=== PATIENT | female | born 1965 | race Caucasian/White ===

== ENCOUNTER 2024-01-02 19:59 | Emergency (ER) | payer BC, SELFPAY ==
[2024-01-02 20:10] VITALS: BP 87/64
[2024-01-02] MEDS: ZOFRAN 4 MG IV (20:52)
[2024-01-02 20:57] LABS: Hematocrit 39.4 % (37.0-47.0); Hemoglobin 14.4 g/dL (12.0-16.0); Mean Corp Hgb Conc. 36.5 g/dL (33.0-37.0); Mean Corpuscular Hgb 31.2 pg (27.0-31.0); Mean Corpuscular Volume 85.5 fL (81.0-99.0); Mean Platelet Volume 9.6 fL (7.4-10.4); Platelet Count 278 10^3/uL (130-400); Red Blood Cell Count 4.61 10^6/uL (4.20-5.40); Red Cell Dist. Width 13.4 % (11.5-14.5); White Blood Cell Count 14.6 10^3/uL (4.8-10.8)
[2024-01-02] MEDS: NSS 1000 IV (21:00)
[2024-01-02 21:14] LABS: ALT (SGPT) 33 U/L (0-35); AST (SGOT) 32 U/L (14-36); Albumin 4.8 g/dl (3.5-5.0); Alkaline Phosphatase 88 U/L (38-126); Blood Urea Nitrogen 29 mg/dl (7-17); Calcium 9.6 mg/dl (8.4-10.2); Carbon Dioxide 22 mmol/L (22-30); Chloride 105 mmol/L (98-107); Glucose 148 mg/dl (70-99); Lipase 144 U/L (23-300); Potassium 3.8 mmol/L (3.5-5.1); Sodium 137 mmol/L (135-145); Total Bilirubin 1.3 mg/dl (0.2-1.3); Total Protein 8.2 g/dl (6.3-8.2); eGFR > 60.00
[2024-01-02] MEDS: BENADRYL 25 MG IV (21:19)
[2024-01-02] MEDS: COMPAZINE 5 MG IV (21:19)
--- NOTE | 2024-01-02 21:24 | ED.GENMED ---
History of Present Illness
General
Chief Complaint: Abdominal Symptoms
Source: patient
Exam Limitations: none
Time Seen by Provider: 01/02/24 20:54
Travel History
Have you had any contact with someone who has COVID-19?: No
Do you have any symptoms of coronavirus? Fever > 100 degrees, chills, cough, shortness of breath, sore throat, loss of taste or smell, muscle aches, or headache?: No
History of Present Illness
History of Present Illness:
This is a 58 year old female that comes in with c/o vomiting and diarrhea. States that this started at 3pm today and then at 6pm it got worse. States that she feels like she is going to pass out. States that she also has a headache. Denies any
fever, chills, chest pain, SOB, abd pain. dizziness, urinary burning.
Past History
Past History
ED Past Medical History: Hypothyroidism and Other (Brain Tumor with radiation, )
ED Past Surgical History: Orthopedic (Left knee surgery)
Social History
Tobacco: Non-smoker
Alcohol: None
Personal:
Living: with family
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
Review of Systems
Review of Systems
All Other Systems: ROS reviewed and negative except as documented in HPI and ROS
Constitutional: Reports no symptoms; Denies fever or chills
EENT: Reports no symptoms
Respiratory: Reports no symptoms; Denies cough or trouble breathing
Cardiac: Reports no symptoms; Denies chest pain
ABD/GI: Reports nausea, vomiting and diarrhea; Denies abdominal pain
: Reports no symptoms; Denies dysuria, frequency or urgency
Musculoskeletal: Reports no symptoms
Skin: Reports no symptoms
Neurological: Reports headache; Denies dizzy
Psychiatric: Reports no symptoms
Phy Exam
General Physical Exam
General Presentation: mild distress
General age: appears stated age
General Skin: warm and dry
General Habitus: normal
General Mental: alert and anxious
General Hydration: dry mucous membranes
ENT Exam
ENT Exam: TM's normal, pharynx normal and neck supple
Eye Exam
Eye Exam: EOMI
Cardiovascular Exam
Cardiovascular Exam: regular rate/rhythm, no edema, no murmur and normal peripheral pulses
Pulmonary Exam
Pulmonary Exam: lungs clear, no respiratory distress, no rales, chest non tender, no crackles, no rhonchi, no wheezing, no cough and other (Patient is hyperventilating at this time. )
Gastrointestinal Exam
Gastrointestinal Exam: normal bowel sounds, non tender, soft, no organomegaly, no pulsatile mass and non distended
Musculoskeletal Exam
Musculoskeletal Exam: full ROM and no edema
Skin Exam
Skin Exam: normal color, warm/dry, no rash and no petechia
Psychiatric Exam
Psychiatric Exam: normal mood/affect
Course
Orders/Labs/Results
Orders:
Orders
01/02/24 20:45
Complete Blood Count/No Diff Urgent
Comprehensive Metabolic Panel Urgent
Lipase Urgent
01/02/24 20:50
Ondansetron Injectable [Zofran] 4 mg .ROUTE .STK-MED ONE
01/02/24 20:51
Ondansetron Injectable [Zofran] 4 mg IV NOW STA
01/02/24 21:00
0.9% Sodium Chloride 1000 ml [Nss] 1,000 ml IV BOLUS
01/02/24 21:15
Diphenhydramine [Benadryl] 25 mg IV NOW STA
Prochlorperazine [Compazine] 5 mg IV NOW STA
Abnormal Lab Results
01/02/24
20:45
WBC 14.6 H 10^3/uL
(4.8-10.8)
MCH 31.2 H pg
(27.0-31.0)
BUN 29 H mg/dl
(7-17)
Glucose 148 H mg/dl
(70-99)
01/02/24 20:45
01/02/24 20:45
Leukocytosis, Dehydration. Glucose nonfasting. Lipase normal at 144
Vital Signs
Initial and Last Documented VS:
Initial Vital Signs
Temp Pulse Resp BP Pulse Ox
97.0 F 88 22 87/64 100
01/02/24 20:10 01/02/24 20:10 01/02/24 20:10 01/02/24 20:10 01/02/24 20:10
Last Documented Vital Signs
Temp Pulse Resp BP Pulse Ox
98.1 F 96 20 138/70 99
01/02/24 20:43 01/02/24 22:45 01/02/24 22:45 01/02/24 22:00 01/02/24 22:45
MDM/Problems Addressed
Differential Diagnosis Includes:
Viral GI syndrome.
MDM/Problems Addressed:
This is a 58 year old female that comes in with c/o vomiting and diarrhea. Patient is hyperventilating and states that she feels like she is going to pass out.
Will check labs, Give IV fluids and medicate for nausea.
Back into see patient. Patient states that she is feeling better. Explained that this is most likely the GI viral syndrome. Will give patient a prescription for Compazine suppositories for the nausea and vomiting. Patient can also use Imodium for
the diarrhea if needed. Patient to stay on a liquid diet for the next 24 hours. Then increase her diet as tolerated. Follow up with the family doctor. Return with any concerns.
Chronic conditions affecting care:
NA
Acute Exacerbation and/or Progression of Chronic Illness:
NA
*Pulse Oximetry
Patient hypoxic: no
*EKG
Interpreted by ED Provider?: NA
Rate: EKG- N/A
*Statue Maker Interpretation
Rate: normal
Heart Rate: 93
Rhythm: sinus
*Critical Care Note
Total Time (30-74mins, 75-104mins- exclusive of procedures): Not Applicable
ED Attending Note
-
Portions of this chart may have been created with voice recognition software.� Occasional wrong word or��sound alike� substitutions may have occurred due to the inherent limitations of voice recognition software.
Discharge Plan
Departure
Patient Disposition: Home (Routine Discharge)
Date of Disposition: 01/02/24
Time of Disposition: 22:57
Patient with high blood pressure during this ER visit?: No
Condition: Good
Covid-19: Not Applicable
Discharge Problem:
Nausea & vomiting, Diarrhea
Instructions: Diarrhea in adolescents and adults, Nausea and Vomiting, Adult (DC)
Prescriptions:
New
prochlorperazine [Compazine] 25 mg suppository
25 mg ND Q12H PRN (Reason: nausea and vomiting) Qty: 6 0RF
Referrals:
UNKNOWN - PT NOT,INTERVIEWE [Family Provider] -
Activity Restrictions/Additional Instructions:
As discussed, your blood work shows dehydration and your White blood cell count is slightly elevated. This can elevate due to stress. You have been given IV fluids here and a prescription for Compazine suppositories has been sent to your Pharmacy.
Please stay on a liquid diet for the next 24 hours and increase the diet as tolerated. You may use Imodium to help with the diarrhea. Please stay away form milk and milk products until the diarrhea stops. Follow up with the family doctor for
recheck. IF YOU HAVE ANY OTHER CONCERNS PLEASE RETURN TO THE EMERGENCY ROOM
Interventions
Interventions:
*Risk Screen - Suicide Last Done: 01/02/24 20:10
*General Assessment Last Done: 01/02/24 20:10
*Neglect/Abuse Screening Last Done: 01/02/24 20:10
ED- Fall Risk Assessment Last Done: 01/02/24 20:10
YZ-Ctiznq-Nxnjsmnsnt Assessment Last Done: 01/02/24 21:03
[2024-01-02 22:00] VITALS: BP 138/70
[2024-01-02 23:10] VITALS: BP 114/73
[2024-01-02] MEDS: COMPAZINE 25 MG RECTAL (23:16)
== END 2024-01-02 23:19 | disposition home or self-care (01) ==
LOC: EMR 19:59
PROVIDERS: EMERGENCY PHYSICIAN Student in an Organized Health Care Education/Training Program
DX: R11.2 Nausea with vomiting, unspecified (principal); R55 Syncope and collapse; R19.7 Diarrhea, unspecified; R06.4 Hyperventilation; R51.9 Headache, unspecified; E86.0 Dehydration; E03.9 Hypothyroidism, unspecified
CPT/HCPCS: 99284; 96374; 96375 ×2; 96361; 80053; 83690; 85027

== ENCOUNTER 2024-07-23 16:33 | Emergency (ER) | payer BC, SELFPAY ==
[2024-07-23 16:39] VITALS: BP 117/76
--- NOTE | 2024-07-23 17:13 | ED.GENMED ---
History of Present Illness
General
Chief Complaint: Headache
Source: patient
Time Seen by Provider: 07/23/24 17:00
History of Present Illness
History of Present Illness:
58-year-old female presents emergency department with a 10-day history of a headache described as 'pressure more than a headache', started on Wednesday while at work. Is not sudden onset, or maximal in onset. Headache is located in the posterior
occiput and does radiate forward bilaterally to behind her ears. It is not associated with numbness, tingling, focal weakness, clumsiness, imbalance, dizziness, chest pain, dyspnea, photophobia, vomiting, neck pain. It is not positional. She does
note very slight nausea. She thought it might be sinus related and took various [id number] medications without relief. She does notice that if she rests it will improve considerably. She also is complaining of fatigue. Patient denies
fever, chills, cough, sore throat, rhinorrhea, double vision, blurry vision. She does note occasional floaters lasting seconds at a time from the right lateral visual field, not present currently.
Past History
Past History
ED Past Medical History: Hypothyroidism and Other (Brain Tumor with radiation, )
ED Past Surgical History: Orthopedic (Left knee surgery)
Social History
Tobacco: Non-smoker
Alcohol: None
Personal:
Living: with family
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
Phy Exam
Physical Exam
Physical Exam:
GENERAL: Alert , in no apparent distress
EYE: pupils equal and reactive, EOMI, no nystagmus, no photophobia
NECK: Supple, no significant adenopathy.
ENT: o/p clr, mmm, TMs clear bilaterally.
CARDIAC: Regular rate and rhythm .
LUNGS: Clear breath sounds bilaterally, no acute respiratory distress,
ABDOMEN: Soft, without focal tenderness, no r/g, no cvat
NEUROLOGICAL: Alert and oriented, no focal neuro deficits, motor 5/5, sens intact, fundoscopic wnl, visual trotter intact, gait wnl, no meningismus, nods yes and no easily, [id number] normal
SKIN: Warm and dry, skin intact.
MUSCULOSKELETAL: No edema, well perfused.
PSYCH: Normal and appropriate interaction.
Course
Orders/Labs/Results
Orders:
Orders
07/23/24 17:13
CT Head W/o Iv Contrast Urgent
Comment:
Reason For Exam: hx of brain tumor, tx'd with chemo, now post h/a
Vital Signs
Initial and Last Documented VS:
Initial Vital Signs
Temp Pulse Resp BP Pulse Ox
98.3 F 80 16 117/76 98
07/23/24 16:39 07/23/24 16:39 07/23/24 16:39 07/23/24 16:39 07/23/24 16:39
Last Documented Vital Signs
Temp Pulse Resp BP Pulse Ox
98.3 F 67 18 138/78 99
07/23/24 16:39 07/23/24 17:54 07/23/24 17:54 07/23/24 17:54 07/23/24 17:54
*Critical Care Note
Total Time (30-74mins, 75-104mins- exclusive of procedures): Not Applicable
Update Note
Update Note:
Patient presents to the Emergency Department with headache____
Number and Complexity of Problems Addressed at the Encounter
� Chronic conditions affecting care:
� Acute Exacerbation and/or Progression of Chronic Illness:
� Differential Diagnosis includes: But not limited to tumor growth, tumor swelling, new tumor, tension headache, etc. etc.
Amount and/or Complexity of Data to be Reviewed and Analyzed
� I performed an independent evaluation of and my interpretation is:
EKG:
CT: Read by radiology NAD
Xrays:
Laboratory Studies:
Other:
� Review of other/old records reveals:
� Clinical information was obtained by an independent historian:
� Prescriptions/Medications Considered but not given:
� Further testing considered but not performed: Considered labs given patient's history of fatigue however she just had a full panel drawn within the last week all of which were generally unremarkable.
Risk of Complications and/or Morbidity or Mortality of Patient Management
� Social determinants of health affecting care:
� Discussion with other providers (PCP, Hospitalists, Consultants, etc):
� Escalation of care including admission/observation vs risk of discharge considered: 6:20 PM patient is extremely relieved that her head CT is unremarkable and would like to go home she has follow-[facility] already at [facility] on
Wednesday and plans to contact her head inspector and center marker as well as her neurosurgeon in follow-up. Given patient's stability, unremarkable exam, etc. I consider this to be a very reasonable approach. Discussed with her importance of follow-up and
reasons to return to the ER.
ED Attending Note
-
Portions of this chart may have been created with voice recognition software.� Occasional wrong word or��sound alike� substitutions may have occurred due to the inherent limitations of voice recognition software.
Discharge Plan
Departure
Patient Disposition: Home (Routine Discharge)
Date of Disposition: 07/23/24
Time of Disposition: 18:19
Patient with high blood pressure during this ER visit?: Yes
Condition: Good
Discharge Problem:
Headache
Instructions: Headache, Adult (DC), Floaters in the Eye, BLOOD PRESSURE
Prescriptions:
No Action
prochlorperazine [Compazine] 25 mg suppository
25 mg MT Q12H PRN (Reason: nausea and vomiting) Qty: 6 0RF
Referrals:
UNKNOWN - PT DOES,NOT KNOW [Family Provider] -
Activity Restrictions/Additional Instructions:
PLEASE SEE YOUR EYE DOCTOR SCHEDULED THIS WEEK. PLEASE FOLLOW-UP WITH YOUR SHUCKER THIS WEEK. IF YOU DEVELOP WORSENING OR NEW HEADACHE, NEW VISUAL FINDINGS, DOUBLE VISION, FEVER, CHILLS, VOMITING, NUMBNESS, WEAKNESS, IMBALANCE, OR OTHER
WORRISOME SIGNS, PLEASE RETURN TO THE ER IMMEDIATELY.
Interventions
Interventions:
*Risk Screen - Suicide Last Done: 07/23/24 16:39
*General Assessment Last Done: 07/23/24 16:39
*Neglect/Abuse Screening Last Done: 07/23/24 16:39
ED- Fall Risk Assessment Last Done: 07/23/24 17:55
*ED COVID-19 Vaccine History Last Done: 07/23/24 17:53
ED- Neurological Assessment Last Done: 07/23/24 17:55
Discharge Date and Time
Print Language: IVORIAN
[2024-07-23 17:53] VITALS: BMI 24.1
[2024-07-23 17:54] VITALS: BP 138/78
--- NOTE | 2024-07-23 18:22 | ED.GENMED ---
History of Present Illness
General
Chief Complaint: Headache
Time Seen by Provider: 07/23/24 17:00
Past History
Past History
ED Past Medical History: Hypothyroidism and Other (Brain Tumor with radiation, )
ED Past Surgical History: Orthopedic (Left knee surgery)
Social History
Tobacco: Non-smoker
Alcohol: None
Personal:
Living: with family
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
Course
Orders/Labs/Results
Orders:
Orders
07/23/24 17:13
CT Head W/o Iv Contrast Urgent
Comment:
Reason For Exam: hx of brain tumor, tx'd with chemo, now post h/a
Vital Signs
Initial and Last Documented VS:
Initial Vital Signs
Temp Pulse Resp BP Pulse Ox
98.3 F 80 16 117/76 98
07/23/24 16:39 07/23/24 16:39 07/23/24 16:39 07/23/24 16:39 07/23/24 16:39
Last Documented Vital Signs
Temp Pulse Resp BP Pulse Ox
98.3 F 67 18 138/78 99
07/23/24 16:39 07/23/24 17:54 07/23/24 17:54 07/23/24 17:54 07/23/24 17:54
ED Attending Note
-
Portions of this chart may have been created with voice recognition software.� Occasional wrong word or��sound alike� substitutions may have occurred due to the inherent limitations of voice recognition software.
Discharge Plan
Departure
Patient Disposition: Home (Routine Discharge)
Date of Disposition: 07/23/24
Time of Disposition: 18:19
Patient with high blood pressure during this ER visit?: Yes
Condition: Good
Discharge Problem:
Headache
Instructions: Headache, Adult (DC), Floaters in the Eye, BLOOD PRESSURE
Prescriptions:
No Action
prochlorperazine [Compazine] 25 mg suppository
25 mg OR Q12H PRN (Reason: nausea and vomiting) Qty: 6 0RF
Referrals:
UNKNOWN - PT DOES,NOT KNOW [Family Provider] -
Activity Restrictions/Additional Instructions:
PLEASE SEE YOUR EYE DOCTOR SCHEDULED THIS WEEK. PLEASE FOLLOW-UP WITH YOUR SEPTIC CLEANER THIS WEEK. IF YOU DEVELOP WORSENING OR NEW HEADACHE, NEW VISUAL FINDINGS, DOUBLE VISION, FEVER, CHILLS, VOMITING, NUMBNESS, WEAKNESS, IMBALANCE, OR OTHER
WORRISOME SIGNS, PLEASE RETURN TO THE ER IMMEDIATELY.
Interventions
Interventions:
*Risk Screen - Suicide Last Done: 07/23/24 16:39
*General Assessment Last Done: 07/23/24 16:39
*Neglect/Abuse Screening Last Done: 07/23/24 16:39
ED- Fall Risk Assessment Last Done: 07/23/24 17:55
*ED COVID-19 Vaccine History Last Done: 07/23/24 17:53
ED- Neurological Assessment Last Done: 07/23/24 17:55
Discharge Date and Time
Print Language: PALAUAN
== END 2024-07-23 18:51 | disposition home or self-care (01) ==
LOC: EMR 16:33
PROVIDERS: EMERGENCY PHYSICIAN Emergency Medicine
DX: R51.9 Headache, unspecified (principal); E03.9 Hypothyroidism, unspecified; Z92.21 Personal history of antineoplastic chemotherapy; Z92.3 Personal history of irradiation
CPT/HCPCS: 99284; 70450